=== PATIENT | female | born 1950 | race Caucasian/White ===

== ENCOUNTER → 2023-05-31 12:54 | Outpatient (REF) | payer MEDICARE, BC, SELFPAY | LOC: WDC 12:54 | PROVIDERS: ATTENDING PHYSICIAN Family Medicine | DX: N95.9 Unspecified menopausal and perimenopausal disorder (principal); Z12.31 Encounter for screening mammogram for malignant neoplasm of breast | CPT/HCPCS: 77063; 77067; 77080 ==

== ENCOUNTER → 2024-07-06 11:06 | Outpatient (REF) | payer MEDICARE, SELFPAY | LOC: WDC 11:06 | PROVIDERS: ATTENDING PHYSICIAN Family Medicine | DX: Z12.31 Encounter for screening mammogram for malignant neoplasm of breast (principal) | CPT/HCPCS: 77063; 77067 ==

== ENCOUNTER → 2024-11-11 12:57 | Outpatient (REF) | payer MEDICARE, SELFPAY | LOC: RCS 12:57 | PROVIDERS: ATTENDING PHYSICIAN Physician Assistant Medical; FAMILY PHYSICIAN Family Medicine | DX: R00.2 Palpitations (principal) | CPT/HCPCS: 93306 ==